=== PATIENT | male | born 1960 | race Caucasian/White ===

== ENCOUNTER 2019-10-13 11:23 | Emergency (ER) | payer BC, SELFPAY ==
[2019-10-13] VITALS (36 sets, daily range): BP systolic 96–120; BP diastolic 75–80; PULSE 87–173; RESP 11–23; TEMP 36.5; O2SAT 96–100
[2019-10-13] MEDS: Normal Saline 1,000 ML 1000 ML IV ×3 (11:40→13:15)
[2019-10-13 11:52] LABS: HGB 17.5 g/dL (13.5-17.5); Mean Corp. HGB Concentration 36.5 g/dL (32.0-36.0); Mean Corpuscular Hemoglobin 32.8 pg (27.0-33.0); Mean Corpuscular Volume 90.1 fL (80-95); Mean Platelet Volume 10.9 fL (8.0-11.0); Platelet Count 159 x1000/uL (130-400); RBC 5.33 m/cumm (4.50-6.00); RBC Distribution Width 15.2 % (11.8-14.1); White Blood Cell Count 8.07 k/cumm (4.4-10.8)
[2019-10-13] MEDS: Ondansetron 4 MG/2 ML VIAL IVP (11:57)
[2019-10-13] MEDS: Normal Saline Flush 10 ML SYR IVP (11:58)
[2019-10-13 12:06] LABS: ALT 36 U/L (16-63); AST 32 U/L (15-37); Albumin 3.2 g/dL (3.4-5.0); Alkaline Phosphatase 83 U/L (46-116); Anion Gap 14.7 mmol/L (3-11); BUN 40 mg/dL (7-18); Bilirubin, Total 1.6 mg/dL (0.2-1.0); CO2 20.3 mmol/L (21.0-32.0); CREATININE 1.89 mg/dL (0.70-1.30); Calcium 9.6 mg/dL (8.5-10.1); Chloride 99 mmol/L (98-107); Estimated GFR 36.69 (mL/min/1.73m2); Glucose 198 mg/dL (74-106); Magnesium 2.1 mg/dL (1.8-2.4); Potassium 3.5 mmol/L (3.5-5.1); Sodium 134 mmol/L (136-145); Total Protein 7.3 g/dL (6.4-8.2)
[2019-10-13 12:10] LABS: Absolute Lymphocyte Count 2.58 k/cumm (1.2-3.4); Absolute Monocyte Count 0.73 k/cumm (0.11-0.7); Absolute Neutrophil Count 4.44 k/cumm (1.2-6.7)
[2019-10-13 12:11] LABS: Diff Comment Manual Differential; RBC Morphology Normal
--- NOTE | 2019-10-13 12:19 | ED.GENADUL_ITS ---
Discharge Plan Disposition Patient Disposition: HOME Condition: Stable Discharge Details Chief Complaint: Nausea/Vomit/Diar Clinical Impression: Nausea & vomiting, Diarrhea, Acute dehydration, Atrial fibrillation Primary Care Provider: Unknown,Unknown ED Provider: Al [facility] Meds and New Rx's Prescriptions: New ondansetron HCl [Zofran] 4 mg tablet 4 mg PO Q6H PRNQty: 10 RF: 0 No Action acetaminophen 325 mg Tablet 650 mg PO Q4H PRN PRNRF: 0 metronidazole 500 mg Tablet 500 mg PO TID RF: 0 prochlorperazine maleate 10 mg Tablet 10 mg PO Q6H PRNRF: 0 capecitabine 500 mg Tablet 1,950 mg PO BID RF: 0 ciprofloxacin HCl 500 mg Tablet 500 mg PO BID RF: 0 nifedipine 10 mg Capsule 10 mg PO DAILY RF: 0 Discharge Instructions Instructions: Atrial Fibrillation (ED), Dehydration (ED), Acute Nausea and Vomiting (ED), Acute Diarrhea (ED) Additional Instructions: Zofran as directed. [id number] Imodium as directed. Ample fluid intake to avoid worsening dehydration. Please watch for new or worsening symptoms and return to the ER for any concerns. I did speak with Dr. Carrillo, who would like you to begin taking your Flagyl only 2 times a day. I spoke with the office of your primary care provider. They are aware of your visit and will evaluate you in their office tomorrow at 8:30 AM. Medical Decision Making 59-year-old gentleman with a history of colon cancer, status post resection, now on his second round of dual therapy chemotherapy. Experiencing nausea, vomiting, diarrhea over the past week-10 days, seen at [facility] 3 days ago, started on Cipro and Flagyl for ileitis. Patient presents today with increased vomiting, fatigue, concern of dehydration. He spoke with his oncology team and they recommended coming to the ER for laboratory values and IV hydration. Patient appears dry, heart rate is irregularly irregular, likely atrial fibri llation in the 140s, will obtain stat EKG, give IV fluids, Zofran and obtain laboratory values. I was able to speak with his oncology team, Dr. Carrillo, who was concerned of his hydration status and potential for electrolyte abnormalities. He felt as though if the patient required hospitalization he could be managed safely at our facility. I had this discussion with patient and he would prefer to go home if at all possible. Upon reevaluation heart rate now in the 90s, on monitor does not appear to be in atrial fibrillation, will repeat EKG Repeat EKG obtained at 1212 reviewed and interpreted by Dr. Wright, sinus rhythm, ventricular rate of 97. No longer in atrial fibrillation. No ST elevation or depression segments Laboratory values reveal WBC 8.07, hemoglobin 17.5, hematocrit 48. Platelet count 159 neutrophils 35%, absolute neutrophils 4.44. Sodium 134 potassium 3.5 chloride 99, carbon dioxide 20.3, anion gap 14.7, BUN 40, creatinine 1.89, GFR estimated at 36.69. Glucose of 198. Calcium 9.6, magnesium 2.1. Patient received a total of 3 L IV fluid, only requiring the single dose of Zofran, he had no vomiting while under my care and was able to tolerate oral brice marva and applesauce. He was able to provide a stool sample but unable to provide a urine sample thus far. Patient subjectively reports feeling much improved. In the meantime I was able to review his records from his visit at the [facility] ER 3 days ago. Creatinine at that time was 0.80, BUN of 8, GFR was 98 Initial troponin was less than 0.05. Patient is agreeable to waiting in the ER for a 3-hour repeat troponin. In the meantime he will attempt to give a urine sample. Patient has no cardiac history. No history specifically of atrial fibrillation. He received IV fluids and the rhythm broke without any other intervention. There is no obvious emergent electrolyte abnormality. Atrial fibrillation very well could be secondary to volume depletion C. difficile is negative Repeat troponin remains less than 0.05. Upon reevaluation patient reports significant improvement of his symptoms. He denies any abdominal pain whatsoever. He did have a single bowel movement here in the ER but no vomiting. Atrial fibrillation has not returned. Discussed with the patient given his morbidities, change in his renal function over 3-day period, and his new onset atrial fibrillation, that observation admission could be perfectly reasonable however he declines at this time. I do believe this to be reasonable however he was encouraged to return to the ER for new or worsening symptoms. I was able to speak with Dr. Carrillo. He recommends decreasing the Flagyl to twice daily rather than 3 times daily. I have also reached out to his primary care provider, Dr. Harrison, to make them aware of the patient's visit today and to set up an outpatient BMP redraw tomorrow to assess electrolytes and renal function. Unfortunately he was not in the office however I was able to speak with his RN. She is aware of the situation and we have set the patient up with an outpatient appointment tomorrow morning at 8:30 AM. Medical Records Medical records reviewed: Yes I reviewed the patient's medical records. ECG Data Attestation: I personally reviewed and interpreted this ECG (s) as follows: Interpretation: Initial EKG obtained at 1144. Reviewed and interpreted by Dr. Wright. Atrial fibrillation, RVR at 137. No obvious acute ST elevation or depression segments HPI General Mode of arrival: ambulatory . Date/Time Provider Initiated Documentation: 10/13/19 11:25 . Limitations to Documentation: no limitations . Information obtained by: patient . HPI Narrative: This is a 59-year-old gentleman who presents to the ER for evaluation for ongoing diarrhea, nausea, and now vomiting increasing over the past 24 hours. He was diagnosed with colon cancer stage III in July, status post bowel resection, and roughly 10 days ago began his dual therapy chemotherapy. Developed abdominal cramping, nausea, diarrhea soon after, seen at the ER in [facility] 3 days ago. Diagnosed with ileitis, started on Cipro and Flagyl. He denies any fever, abdominal pain, back pain. Reports that he still has diarrhea but is not quite as frequent or foul- smelling. He has been unable to eat or drink and feels extremely weak, concern for dehydration. I was able to speak with the patient's oncologist, Dr. Carrillo, who reports the patient had a negative C. difficile stool sample as well as no growth in his blood cultures at 3 days length. He believes that the patient likely needs IV hydration, to have his electrolytes evaluated, to be sure he did not become severely neutropenic, and plus or minus a CT depending on his symptoms. We discussed patient is currently without any abdominal pain, fever, and his diarrhea is actually slightly improving. CT emergently likely not indicated. Dr. Carrillo does believe that if the C. difficile screen is negative today, he could start back up with [id number] Imodium. Related Data Home Medications Medication Instructions Recorded Confirmed acetaminophen 650 mg PO Q4H PRN PRN 10/13/19 10/13/19 capecitabine 1,950 mg PO BID 10/13/19 10/13/19 ciprofloxacin HCl 500 mg PO BID 10/13/19 10/13/19 metronidazole 500 mg PO TID 10/13/19 10/13/19 nifedipine 10 mg PO DAILY 10/13/19 10/13/19 ondansetron HCl [Zofran] 4 mg PO Q6H PRN #10 tab 10/13/19 prochlorperazine maleate 10 mg PO Q6H PRN 10/13/19 10/13/19 Previous Rx's Medication Instructions Recorded ondansetron HCl [Zofran] 4 mg PO Q6H PRN #10 tab 10/13/19 Allergies Allergy/AdvReac Type Severity Reaction Status Date / Time No Known Allergies Allergy Unverified 10/13/19 11:29 General Stated Complaint: Nausea/Vomit/Diar ATUL: 3 Review of Systems Constitutional Constitutional: Reports fatigue, Denies fever(s), Denies headache(s) and Reports weakness (General) Eyes Eyes: Denies change in vision ENT Ears, Nose, Mouth, and Throat: Denies headache(s) and Denies sore throat Cardiovascular Cardiovascular: Denies chest pain and Denies dyspnea Respiratory Respiratory: Denies cough and Denies dyspnea Gastrointestinal Gastrointestinal: Denies abdominal pain, Denies melena, Denies hematochezia, Reports diarrhea, Reports nausea and Reports vomiting Genitourinary Genitourinary: Denies dysuria Musculoskeletal Musculoskeletal: Denies back pain Integumentary/Breasts Skin/Breast: Denies rash Neurologic Neurologic: Denies headache(s) and Reports weakness (General) Endocrine Endocrine: Reports fatigue [facility] Social History Smoking/Tobacco Use Status: Former Tobacco Use Alcohol Intake: current Alcohol Intake frequency: holidays/special occasions only Substance use type: does not use Do you feel safe at home: Yes Do you feel safe in your relationship?: Yes Exam Const General: cooperative and healthy appearing Orientation: alert, awake and oriented x3 HENMT Head: normal to inspection, normocephalic and atraumatic Mouth: moist mucous membranes abnormal (Dry) Throat: posterior oropharynx normal Eyes Conjunctivae: conjunctivae normal Neck Neck: normal visual inspection, trachea midline and supple Resp Effort & Inspection: normal respiratory effort and able to speak in complete sentences Auscultation: clear to auscultation bilaterally Cardio Rate: tachycardic Rhythm: abnormal rhythm (Irregularly irregular, rate in the 140s) GI Inspection: normal to inspection Palpation: soft, not firm, no guarding, not rigid and nontender Auscultation: normal bowel sounds Back/Spine/Pelvis Back: No back tenderness Skin General skin exam: no rashes or lesions noted Neuro General: patient alert, patient awake, moves all extremities and no focal motor deficits Motor: muscle tone normal throughout Sensory Exam: no sensory deficits noted Extrem General: normal to inspection, full ROM and capillary refill normal Psych Appearance: grossly normal Mental Status: mental status grossly normal Course Vital Signs Vital signs: Vital Signs Temperature 36.5 C 10/13/19 11:29 Pulse 138 H 10/13/19 11:29 Respiratory Rate 16 10/13/19 11:29 Blood Pressure 100/77 10/13/19 11:29 Pulse Oximetry 98 10/13/19 11:29 Temperature 36.5 C 10/13/19 11:29 Temperature Source Temporal Artery Scan 10/13/19 11:29 Pulse 138 H 10/13/19 11:29 Respiratory Rate 16 10/13/19 11:29 Respiratory Effort Non-Labored 10/13/19 11:33 Blood Pressure 100/77 10/13/19 11:29 Blood Pressure Position Supine 10/13/19 11:29 Pulse Oximetry 98 10/13/19 11:29 Oxygen Delivery Method Room Air 10/13/19 11:29 Oxygen Flow Rate 0 10/13/19 11:29 Pain Level 0 10/13/19 11:29 Lab/Test Results Lab/Test Results: Laboratory Tests Range/Units 10/13/19 10/13/19 11:40 11:40 WBC (4.4-10.8) k/cumm 8.07 RBC (4.50-6.00) m/cumm 5.33 Hgb (13.5-17.5) g/dL 17.5 Hct (40.0-50.0) % 48.0 MCV (80-95) fL 90.1 MCH (27.0-33.0) pg 32.8 MCHC (32.0-36.0) g/dL 36.5 H RDW (11.8-14.1) % 15.2 H Plt Count (130-400) x1000/uL 159 MPV (8.0-11.0) fL 10.9 Immature Gran % See Differential Neutrophils % 35.0 Band Neutrophils % % 20.0 Lymphocytes % 32.0 Monocytes % 9.0 Eosinophils % 0.0 Basophils % 0.0 Metamyelocytes % % 3.0 Myelocytes % % 1.0 Absolute Neutrophils (1.2-6.7) k/cumm 4.44 Absolute Lymphocytes (1.2-3.4) k/cumm 2.58 Absolute Monocytes (0.11-0.7) k/cumm 0.73 H Absolute Eosinophils (0.0-0.7) k/cumm 0.00 Absolute Basophils (0.0-0.2) k/cumm 0.00 Differential Comment Manual differential RBC Morphology Normal Sodium (136-145) mmol/L 134 L Potassium (3.5-5.1) mmol/L 3.5 Chloride (98-107) mmol/L 99 Carbon Dioxide (21.0-32.0) mmol/L 20.3 L Anion Gap (3-11) mmol/L 14.7 H BUN (7-18) mg/dL 40 H Creatinine (0.70-1.30) mg/dL 1.89 H Estimated GFR/1.73 m2 (mL/min/1.73m2) 36.69 Glucose (74-106) mg/dL 198 H Calcium (8.5-10.1) mg/dL 9.6 Magnesium (1.8-2.4) mg/dL 2.1 Total Bilirubin (0.2-1.0) mg/dL 1.6 H AST (15-37) U/L 32 ALT (16-63) U/L 36 Alkaline Phosphatase (46-116) U/L 83 Total Protein (6.4-8.2) g/dL 7.3 Albumin (3.4-5.0) g/dL 3.2 L
[2019-10-13 13:16] LABS: Troponin I < 0.05 ng/Ml (<0.06)
[2019-10-13 15:07] LABS: Troponin I < 0.05 ng/Ml (<0.06)
[2019-10-14 10:33] LABS: Campylobacter PCR Negative (Negative); Salmonella PCR Negative (Negative); Shiga Toxin PCR Negative (Negative); Shigella/Enteroinvasive Ecoli Negative (Negative)
== END 2019-10-13 16:00 | disposition home or self-care (01) ==
PROVIDERS: Emergency Provider Physician Assistant
DX: R11.2 Nausea with vomiting, unspecified (principal); R19.7 Diarrhea, unspecified; E86.0 Dehydration; I48.91 Unspecified atrial fibrillation; C18.9 Malignant neoplasm of colon, unspecified; Z79.899 Other long term (current) drug therapy; Z90.49 Acquired absence of other specified parts of digestive tract
CPT/HCPCS: 80053; 87505; 93005; 96361; 96374; 99284; 81003; 83735; 84484; 85025; 87324; 93010; J2405

== ENCOUNTER 2019-11-07 03:29 | Outpatient (CLI) | payer BC, SELFPAY ==
[2019-11-07 07:53] LABS: Abs Immature Grans 0.02 k/cumm (0.0-0.09); Absolute Basophil Count 0.06 k/cumm (0.0-0.2); Absolute Eosinophil Count 0.09 k/cumm (0.0-0.7); Absolute Monocyte Count 0.77 k/cumm (0.11-0.7); Basophils % 0.9; Eosinophils % 1.4; HGB 11.7 g/dL (13.5-17.5); Immature Grans % 0.3 %; Lymphocytes % 23.3; Mean Corp. HGB Concentration 33.4 g/dL (32.0-36.0); Mean Corpuscular Hemoglobin 33.2 pg (27.0-33.0); Mean Corpuscular Volume 99.4 fL (80-95); Mean Platelet Volume 9.6 fL (8.0-11.0); Neutrophils % 62.1; Platelet Count 367 x1000/uL (130-400); RBC 3.52 m/cumm (4.50-6.00); RBC Distribution Width 17.1 % (11.8-14.1); White Blood Cell Count 6.44 k/cumm (4.4-10.8)
== END 2019-11-07 03:49 ==
PROVIDERS: PCP Family Medicine; Visit Provider Internal Medicine
DX: C18.9 Malignant neoplasm of colon, unspecified (principal)
CPT/HCPCS: 36415; 85025